=== PATIENT | female | born 1970 | race Caucasian/White ===

== ENCOUNTER 2019-07-21 11:11 | Outpatient (CLI) | payer OTHER, SELFPAY ==
--- NOTE | ~2019-07-21 | XR_ITS ---
XR lumbar spine 2-3V 07/21/2019 11:51 Indication: Low back pain Procedure: 3 views lumbar spine Comparison: 08/10/2016 Findings: There is disc narrowing at L2-3, L3-4 and to a lesser degree L1-2. There is levoscoliosis. Vertebral body heights are maintained. There is grade 1 spinal listhesis at L5-S1. Pedicles intact. T here is a healed right 10th rib fracture. Impression: 1: Mild lumbar spondylosis with levoscoliosis. Reviewed, dictated and finalized at location A. TECHNOLOGIST Impression: 1: Mild lumbar spondylosis with levoscoliosis.
--- NOTE | ~2019-07-21 | XR_ITS ---
XR thoracic spine 3V 07/21/2019 11:51 Indication: Back pain Procedure: 3 views thoracic spine Comparison: No prior studies for comparison. Findings: Vertebral body heights are maintained. There is mild dextroscoliosis of the lower thoracic spine. Pedicles intact. No paraspinal soft tissue abnormalities. The surrounding osseous structures w ithin normal limits. No acute fracture or traumatic malalignment. Impression: 1: Mild dextroscoliosis of the lower thoracic spine. Reviewed, dictated and finalized at location A. BLASTER SUPERVISOR Impression: 1: Mild dextroscoliosis of the lower thoracic spine.
[2019-07-21 12:56] LABS: Hemoglobin 13.6 g/dL (12.0-15.0); Mean Corpuscular HGB Conc 31.6 g/dl (32-36); Mean Corpuscular Hemoglobin 29.2 pg (26-34); Mean Corpuscular Volume 92.5 fl (80-100); Mean Platelet Volume 10.3 fl (7.4-10.4); Platelet Count Result 358 k/mm3 (150-375); Red Blood Count 4.65 M/mm3 (4.2-5.4); Red Cell Distribution Width 13.3 % (11.5-14.5); White Blood Count 10.1 K/mm3 (4.5-10.0)
== END 2019-07-21 11:12 | disposition home or self-care (01) ==
LOC: ANHIMG 11:18
PROVIDERS: PCP Emergency Medicine; Visit Provider Emergency Medicine
DX: M41.84 Other forms of scoliosis, thoracic region (principal); D72.829 Elevated white blood cell count, unspecified; M47.816 Spondylosis without myelopathy or radiculopathy, lumbar region
CPT/HCPCS: 36415; 72072; 72100; 85027

== ENCOUNTER 2019-08-23 05:31 | Emergency (ER) | payer OTHER, SELFPAY ==
--- NOTE | ~2019-08-23 | XR_ITS ---
EXAMINATION: XR chest 2V DATE: 08/23/2019 06:34 INDICATION: Cough TECHNIQUE: PA and lateral views of the chest were obtained. COMPARISON: Chest radiograph dated 10/09/2018 FINDINGS: Mild biapical pleural-parenchymal scarring. Couple small calcified pulmonary nodules consistent with old granulomatous disease. No new airspace opacities, pulmonary edema, pleural effusion or pneumothor ax. The cardiomediastinal silhouette is normal. Mild thoracolumbar dextrocurvature with mild thoracic and moderate upper lumbar spondylosis. IMPRESSION: 1. No acute cardiopulmonary disease. Reviewed, dictated and finalized at location A.
[2019-08-23 05:46] VITALS: BP 128/74; PULSE 73; RESP 15; TEMP 36.4; O2SAT 100
--- NOTE | 2019-08-23 06:51 | ED.URI ---
HPI - URI/Sore Throat General Chief Complaint: Upper Respiratory Infection Stated Complaint: COUGH/SOB Time Seen by Provider: 08/23/19 05:59 History of Present Illness HPI Narrative: Patient is a 49-year-old female who presents to the ER with reports of productive cough of green phlegm. No fevers or chills or body aches. Has history of emphysema and lung disease from smoking. Patient continues to smoke. Has a son who currently is ill with respiratory issue as well. +PND and sore throat. No recent travel or other known sick contacts. No modifying factors for her cough. No shortness of breath. Symptoms began 08/17/2019. Related Data Allergies Allergy/AdvReac Type Severity Reaction Status Date / Time amoxicillin Allergy Intermediate abd. pain Verified 06/25/18 17:45 Review of Systems Review of Systems: All systems reviewed & are unremarkable except as noted in HPI and below Constitutional: Constitutional: Denies chills and Denies fever(s) ENT: Denies hoarseness, Reports post nasal drip and Reports sore throat Respiratory: Respiratory: Reports change in phlegm color, Denies chest congestion, Reports cough and Denies dyspnea PMFSH Past Medical History Medical History (Updated 08/23/19 @ 07:13 by Corey Rodriguez MD) Anxiety Depression Surgical History Surgical History (Updated 08/23/19 @ 06:55 by Corey Rodriguez MD) No pertinent past surgical history Social History Social History (Updated 08/23/19 @ 06:55 by Corey Rodriguez MD) Smoking status: Current every day smoker Tobacco type: cigarettes Gender identity (if verbalized by the patient): Female Exam Narrative: Exam Narrative: GENERAL: Well-appearing, well-nourished, and in no acute distress. HEAD: Normocephalic, atraumatic. ENT: Mucous membranes moist. Normal posterior oropharynx. CHEST: Clear to auscultation. No respiratory distress. HEART: Regular rate and rhythm. Normal peripheral pulses. NEURO: Alert and oriented x3. PSYCH: Normal mood and affect. Course Course Emergency Course: Recommend OTC supportive care. No wheezing so no steroids/albuterol. Vital Signs Vital signs: Vital Signs Temperature 97.6 F 08/23/19 05:46 Pulse Rate 73 08/23/19 05:46 Respiratory Rate 15 08/23/19 05:46 Blood Pressure 128/74 08/23/19 05:46 Pulse Oximetry 100 08/23/19 05:46 Temperature 97.6 F 08/23/19 05:46 Pulse Rate 73 08/23/19 05:46 Respiratory Rate 15 08/23/19 05:46 Blood Pressure 128/74 08/23/19 05:46 Pulse Oximetry 100 08/23/19 05:46 MDM - URI/Sore Throat Lab Data Labs: Influenza A Screen Negative Reference Range: Negative Influenza B Screen Negative Reference Range: Negative Imaging Data Radiologist's impression: ITS Impressions Chest X-Ray 08/23/19 06:46 IMPRESSION: 1. No acute cardiopulmonary disease. Discharge Plan Discharge Clinical Impression: Viral infection Patient Disposition: Home, Self-Care Condition: Stable Instructions: Viral Syndrome (ED) Additional Instructions: You have a viral syndrome that is causing you to have a productive cough. You had a normal chest x-ray and normal vital signs while in the ER. Is recommended that you purchase [id number] Mucinex DM to help with cough suppression and evacuation of phlegm. Return to the ER if you develop shortness of breath, you have fevers over 100.4 ?F, you have additional concerns. Prescriptions: New dextromethorphan-guaifenesin [Mucinex DM] 60-1,200 mg tablet extended release 12 hr 1 tablet PO Q12H Qty: 20 RF: 0 Follow-up/Referrals: Mannie Mcclain MD [Primary Care Provider] -
[2019-08-23 07:10] VITALS: BP 121/87; PULSE 98; RESP 17; O2SAT 97
== END 2019-08-23 07:10 | disposition home or self-care (01) ==
PROVIDERS: Emergency Provider Emergency Medicine; PCP Emergency Medicine
DX: B34.9 Viral infection, unspecified (principal); J43.9 Emphysema, unspecified; F17.210 Nicotine dependence, cigarettes, uncomplicated
CPT/HCPCS: 71046; 87804; 99283

== ENCOUNTER 2020-01-22 15:07 | Outpatient (CLI) | payer OTHER, SELFPAY ==
--- NOTE | ~2020-01-22 | MM_ITS ---
EXAMINATION: MM screening [facility] BI w yesi HISTORY: Screening mammogram TECHNIQUE: Craniocaudal and mediolateral oblique 3-D tomosynthesis images were obtained and synthetic 2-D images were generated. CAD analysis was submitted and interpreted. COMPARISON: 08/16/2018, 08/12/2016 BREAST PARENCHYMAL COMPOSITION: The breasts are heterogeneously dense, which may obscure small masses . FINDINGS: There is no evidence of suspicious mass, calcification, or architectural distortion to sugg est malignancy in either breast. There has been no suspicious interval change. IMPRESSION: 1. No mammographic evidence of malignancy. 2. Recommend routine screening mammography in one year. BI-RADS Category 1: Negative Reviewed, dictated and finalized at location A.
== END 2020-01-22 15:08 | disposition home or self-care (01) ==
LOC: ANHIMG 15:09
PROVIDERS: PCP Emergency Medicine; Visit Provider Nurse Practitioner Family
DX: Z12.31 Encounter for screening mammogram for malignant neoplasm of breast (principal)
CPT/HCPCS: 77063; 77067

== ENCOUNTER 2020-06-10 15:00 | Outpatient (RCR) | payer OTHER, SELFPAY ==
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
== END 2020-06-11 14:01 | disposition home or self-care (01) ==
LOC: ANHPT 15:00
PROVIDERS: PCP Nurse Practitioner Family
DX: M54.12 Radiculopathy, cervical region (principal)
CPT/HCPCS: 97014; 97110; 97112; 97140; 97162; G0283

== ENCOUNTER 2020-06-16 10:22 | Outpatient (CLI) | payer OTHER, SELFPAY ==
[2020-06-16 11:03] LABS: Hemoglobin A1C 5.1 % (<5.7)
[2020-06-16 11:08] LABS: Alanine Aminotransferase 20 U/L (4-35); Albumin Level 4.1 g/dL (3.5-5.1); Alkaline Phosphatase 72 U/L (38-126); Anion Gap 5 mmol/L (8-16); Aspartate Amino Transferase 28 U/L (14-36); Bilirubin,Total 0.8 mg/dL (0.2-1.3); Blood Urea Nitrogen 17 mg/dL (7-17); Calcium 8.5 mg/dL (8.4-10.2); Carbon Dioxide 24 mmol/L (22-30); Chloride 103 mmol/L (98-107); Cholesterol 183 mg/dL (0-200); Estimated Glomerular Filt Rate > 60; Glucose 96 mg/dL (65-105); HDL Direct 51 mg/dL; Potassium 4.2 mmol/L (3.4-5.0); Sodium 132 mmol/L (137-145); Triglycerides 191 mg/dL (<150)
[2020-06-16 11:19] LABS: LDL Cholesterol Direct 104 mg/dL
== END 2020-06-16 10:23 | disposition home or self-care (01) ==
PROVIDERS: PCP Nurse Practitioner Family; Visit Provider Nurse Practitioner Family
DX: E78.5 Hyperlipidemia, unspecified (principal); R73.9 Hyperglycemia, unspecified
CPT/HCPCS: 36415; 80053; 80061; 83036

== ENCOUNTER → 2020-08-08 10:55 | Outpatient (CLI) | payer OTHER, SELFPAY ==
[2020-08-09 01:17] LABS: SARS-CoV-2 RNA PCR Negative
== END ==
PROVIDERS: PCP Nurse Practitioner Family
DX: Z01.812 Encounter for preprocedural laboratory examination (principal); Z20.822 Contact with and (suspected) exposure to COVID-19
CPT/HCPCS: C9803; U0003; U0005

== ENCOUNTER 2021-03-21 09:49 | Emergency (ER) | payer OTHER, SELFPAY ==
[2021-03-21 10:00] VITALS: BP 140/89; PULSE 79; RESP 16; TEMP 36.8; O2SAT 99
--- NOTE | 2021-03-21 10:25 | ED.URI ---
HPI - URI/Sore Throat General Chief Complaint: Upper Respiratory Infection Stated Complaint: sinus infection Time Seen by Provider: 03/21/21 10:26 Source: patient and RN notes reviewed Mode of arrival: ambulatory Limitations: no limitations History of Present Illness HPI Narrative: 51-year-old female presents concern for cough, chest congestion, headache, sinus pressure. Reports symptoms started 6 days ago. Reports she had a negative Covid test. Reports she has been using albuterol that she had from past bronchitis. Reports she has been using Flonase. Reports the Flonase has helped her sinus drainage strep, however she now has worsening persistent cough. She denies shortness of breath. MD elicited complaint: nasal congestion Related Data Home Medications Medication Instructions Recorded Confirmed Flonase 03/21/21 albuterol 03/21/21 citalopram mg 03/21/21 Allergies Allergy/AdvReac Type Severity Reaction Status Date / Time amoxicillin Allergy Intermediate abd. pain Verified 06/25/18 17:45 Review of Systems Review of Systems: CONSTITUTIONAL: Denies malaise, chills, sweats, or fever. EYES: Denies visual changes, redness, or discharge. ENT: Reports rhinorrhea, congestion, sinus pain, ear fullness. Denies otalgia and sore throat. CARDIOVASCULAR: Denies chest pain, palpitations, or edema. RESPIRATORY: Reports persistent cough. Denies dyspnea. GASTROINTESTINAL: Denies abdominal pain, nausea, vomiting, diarrhea SKIN: Denies rash or itching. MUSCULOSKELETAL: Denies myalgia. NEUROLOGIC: Reports headache. All systems reviewed & are unremarkable except as noted in HPI and below PMFSH Past Medical History Medical History (Updated 03/21/21 @ 10:36 by Padmini Carr NP) Anxiety Depression Surgical History Surgical History (Updated 08/23/19 @ 06:55 by Corey Rodriguez MD) No pertinent past surgical history Social History Social History (Updated 08/23/19 @ 06:55 by Corey Rodriguez MD) Smoking status: Current every day smoker Tobacco type: cigarettes Gender identity (if verbalized by the patient): Female Comments At time of signature, agree with nursing past medical, surgical, social and family history. There is no relevant family history pertinent to the presenting complaint Exam Narrative: GENERAL: Well-appearing, well-nourished, and in no acute distress. HEAD: Normocephalic EYES: PERRLA, conjunctivae clear ENT: Nares clear, clear discharge. Mucous membranes moist. TM pearly kraft with dull light reflex bilaterally; no tragal tenderness. Oropharynx not erythematous without lesions. Tonsils not enlarged and without exudate, no drooling, no hoarseness, no trismus, uvula midline. NECK: Supple. No lymphadenopathy CHEST: Clear to auscultation, breath sounds equal. No wheezing, rhonchi, rales, or stridor. No respiratory distress, speaks in full sentences. Cough HEART: Regular rate and rhythm. No murmur heard. SKIN: Warm, dry, no rash. NEURO: Alert and oriented x3. PSYCH: Normal mood and affect Course Course Emergency Course: Patient is aware of diagnosis, understands and agrees to treatment plan. Anticipatory guidance given. Patient agrees to follow-up as directed and is aware of reasons to seek care at the emergency department. Portions of this record may have been created with voice recognition software Vital Signs Vital signs: Vital Signs Temperature 98.2 F 03/21/21 10:00 Pulse Rate 79 03/21/21 10:00 Respiratory Rate 16 03/21/21 10:00 Blood Pressure 140/89 03/21/21 10:00 Pulse Oximetry 99 03/21/21 10:00 Temperature 98.2 F 03/21/21 10:00 Pulse Rate 79 03/21/21 10:00 Respiratory Rate 16 03/21/21 10:00 Blood Pressure 140/89 03/21/21 10:00 Pulse Oximetry 99 03/21/21 10:00 Reviewed. MDM - URI/Sore Throat MDM Narrative Medical decision making narrative: Differential diagnosis considered: Stein virus, strep pharyngitis, allergic rhinitis, upper respirato
== END 2021-03-21 10:39 | disposition home or self-care (01) ==
PROVIDERS: Emergency Provider Nurse Practitioner; PCP Nurse Practitioner Family
DX: J32.9 Chronic sinusitis, unspecified (principal); J40 Bronchitis, not specified as acute or chronic; F17.210 Nicotine dependence, cigarettes, uncomplicated
CPT/HCPCS: 99213; G0463

== ENCOUNTER 2021-04-16 18:22 | Emergency (ER) | payer OTHER, SELFPAY ==
--- NOTE | ~2021-04-16 | XR_ITS ---
EXAMINATION: XR hand RT min 3V DATE: 04/16/2021 18:40 INDICATION: Right hand swelling TECHNIQUE: Posteroanterior, oblique and lateral views of the right hand were obtained. COMPARISON: None. FINDINGS: Alignment is normal. No fracture. Mild osteoarthritis at the first interphalangeal joint. No erosions to suggest an inflammatory arthritis. Soft tissues are unremarkable. IMPRESSION: 1. 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 No acute osseous abnormality. Reviewed, dictated and finalized at location A. ER HOOKER IMPRESSION: 1. 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 No acute osseo us abnormality.
--- NOTE | 2021-04-16 18:29 | ED.UPPEXIN ---
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 Has a history of anxiety, depression. Denies any other past medical or surgical history Related Data Home Medications Medication Instructions Recorded Confirmed citalopram mg 03/21/21 Allergies Allergy/AdvReac Type Severity Reaction Status Date / Time amoxicillin Allergy Intermediate abd. pain Verified 06/25/18 17:45 Review of Systems Constitutional: Constitutional: Reports no additional constitutional complaints, Denies chills and Denies fever(s) Eyes: Eyes: Reports no additional eye complaints ENT: Reports system reviewed and no additional complaints, except as documented Cardiovascular: Cardiovascular: Reports no additional cardiovascular complaints Respiratory: Respiratory: Reports no additional respiratory complaints Musculoskeletal: Musculoskeletal: Reports as per HPI Comments: Base of thumb right hand minor swelling dorsal Integumentary/Breasts: Skin/Breast: Reports system reviewed and no additional complaints, except as docu Neurologic: Reports system reviewed and no additional complaints, except as documented Psychiatric: Psychiatric: Reports no additional psychiatric complaints Allergic/Immunologic: Allergic/Immunologic: Reports no additional allergic/immunologic complaints PMFSH Past Medical History Medical History (Updated 04/16/21 @ 18:59 by Padmini Arango) Anxiety Depression Surgical History Surgical History No pertinent past surgical history Social History Social History Smoking status: Current every day smoker Tobacco type: cigarettes Gender identity (if verbalized by the patient): Female Comments At the time of my signature, I reviewed and agree with the nursing past medical, surgical, social, and family history. There is no relevant family history pertinent to the patient complaint. Exam Const: General: healthy appearing, no acute distress and alert Nutritional Appearance: well nourished Orientation/consciousness: patient oriented x3 Limitations: no limitations HENMT: Head: normal to inspection Eyes: Pupils: Equal, round and reactive pupils present Neck: Neck: normal visual inspection, no lymphadenopathy and no meningeal signs Chest: Chest palpation & inspection: normal inspection of the chest Resp: Effort & Inspection: normal respiratory effort and no use of accessory muscles Auscultation: clear to auscultation bilaterally, no crackles, no rales, no rhonchi and no wheezes Cardio: Rate: regular rate Rhythm: regular rhythm : General: Yes no CVA tenderness Back/Spine/Pelvis: Back: no CVA tenderness Skin: General skin exam: normal color Rashes: no rashes Wounds: no wounds Neuro: General: patient oriented x3, moves all extremities, no meningeal signs and no focal motor deficits Speech: normal speech Gait exam (Neuro): Normal gait present Extrem: General: normal to inspection and no pedal edema Right upper extremity: Extremity exam: right hand normal capillary refill, neuromotor exam normal, neurosensory exam normal, tenderness of the thumb at the MCP joint, normal ROM of fingers and swelling of the dorsal hand over the 1st metacarpal and over the 2nd metacarpal; no unusual warmth Left upper extremity: normal to inspection Psych: Appearance: grossly normal and well kempt Mental Status: mental status grossly normal Affect: normal affect Attitude: cooperative Thought con
[2021-04-16 18:31] VITALS: BP 143/87; PULSE 78; RESP 16; TEMP 36.4; O2SAT 99
== END 2021-04-16 19:08 | disposition home or self-care (01) ==
PROVIDERS: Emergency Provider Nurse Practitioner; PCP Nurse Practitioner Family
DX: M19.041 Primary osteoarthritis, right hand (principal); F41.9 Anxiety disorder, unspecified; F32.9 Major depressive disorder, single episode, unspecified
CPT/HCPCS: 73130; 99213; G0463

== ENCOUNTER 2021-11-03 12:37 | Outpatient (CLI) | payer OTHER, SELFPAY ==
[2021-11-03 13:06] LABS: Basophils Percent Auto 0.2 % (0.2-1.2); Eosinophils Percent Auto 0.5 % (0-4.4); Hematocrit 39.2 % (37.0-47.0); Hemoglobin 12.6 g/dL (12.0-15.0); Immature Granulocyte Absolute 0.04 K/mm3 (0.00-0.031); Immature Granulocyte Percent A 0.5 % (0-0.5); Lymphocytes Absolute Auto 1.78 K/mm3 (0.9-3.2); Lymphocytes Percent Auto 20.5 % (18.3-44.2); Mean Corpuscular HGB Conc 32.1 g/dl (32-36); Mean Corpuscular Hemoglobin 29.5 pg (26-34); Mean Corpuscular Volume 91.8 fl (80-100); Mean Platelet Volume 10.1 fl (7.4-10.4); Monocytes Absolute Auto 0.4 K/mm3 (0.1-0.6); Neutrophils Absolute Auto 6.4 K/mm3 (1.3-6.7); Neutrophils Percent Auto 73.3 % (45.5-73.1); Platelet Count Result 288 k/mm3 (150-375); Red Blood Count 4.27 M/mm3 (4.2-5.4); Red Cell Distribution Width 13.8 % (11.5-14.5); White Blood Count 8.7 K/mm3 (4.5-10.0)
[2021-11-03 13:08] LABS: Rheumatoid Factor < 8.6 IU/ML (<12)
[2021-11-03 13:16] LABS: Alanine Aminotransferase 17 U/L (6-35); Alkaline Phosphatase 80 U/L (38-126); Anion Gap 6 mmol/L (8-16); Aspartate Amino Transferase 24 U/L (14-36); Bilirubin,Total 0.8 mg/dL (0.2-1.3); Blood Urea Nitrogen 9 mg/dL (7-17); Calcium 8.6 mg/dL (8.4-10.2); Carbon Dioxide 25 mmol/L (22-30); Chloride 103 mmol/L (98-107); Cholesterol 158 mg/dL (0-200); Estimated Glomerular Filt Rate > 60; Glucose 114 mg/dL (65-110); HDL Direct 55 mg/dL; LDL Cholesterol Direct 70 mg/dL; Potassium 3.8 mmol/L (3.4-5.0); Sodium 134 mmol/L (137-145); Triglycerides 72 mg/dL (<150)
[2021-11-03 13:35] LABS: Thyroid Stimulating Hormone 0.656 uIU/mL (0.465-4.680)
== END 2021-11-03 12:38 | disposition home or self-care (01) ==
LOC: ANHLAB 12:40
PROVIDERS: PCP Nurse Practitioner Family; Visit Provider Physician Assistant
DX: D17.9 Benign lipomatous neoplasm, unspecified (principal); M25.50 Pain in unspecified joint; Z76.89 Persons encountering health services in other specified circumstances
CPT/HCPCS: 36415; 80053; 80061; 84443; 85025; 86038; 86430

== ENCOUNTER → 2021-12-23 14:48 | Outpatient (CLI) | payer OTHER, SELFPAY ==
--- NOTE | ~2021-12-23 | XR_ITS ---
XR cervical spine 4-5V DATE: 12/23/2021 15:07 INDICATION: Right neck pain for one week TECHNIQUE: AP, open-mouth, lateral and swimmer views COMPARISON: 05/16/2017 CT cervical spine FINDINGS: There is reversal cervical curvature. C1 and C2 are normally aligned and the odontoid process is intact. 3.4 mm anterolisthesis at C4-5, compared to approximately 1.5 mm on 05/16/2017. No fracture or dislocation or locked facet or prevertebral soft tissue swelling. There is severe degenerative disc disease and mild retrolisthesis at C5-6. Moderately severe degenerative disc disease and retrolisthesis at C6-7. There is uncovertebral joint spurring, most notably on the right at C4-5 and C5-6 and particularly on the left at C5-6 and C6-7. IMPRESSION: Reversal cervical curvature 3.4 mm anterolisthesis at C4-5, increased from 1.5 mm on 05/16/2017 Severe degenerative disease, retrolisthesis at C5-6 Moderately severe degenerative disease, retrolisthesis at C6-7 Reviewed, dictated and finalized at location A.
== END ==
PROVIDERS: PCP Physician Assistant; Visit Provider Physician Assistant
DX: M47.22 Other spondylosis with radiculopathy, cervical region (principal)
CPT/HCPCS: 72050

== ENCOUNTER 2022-06-03 08:36 | Emergency (ER) | payer OTHER, SELFPAY ==
[2022-06-03 08:56] VITALS: BP 144/80; PULSE 79; RESP 16; TEMP 36.4; O2SAT 99
--- NOTE | 2022-06-03 09:24 | ED.EYEPROB ---
HPI - Eye Problem General Chief complaint: Eye Problems Stated complaint: right eye injury Time Seen by Provider: 06/03/22 09:25 Source: patient Mode of arrival: ambulatory Limitations: no limitations History of Present Illness HPI Narrative: 52 y/o female presented for c/o bruising to right eye after injury 5 days ago. States while at work a bungee cord struck her in the face resulting in bruising and pain. Now also with right neck pain and headache. States the injury has caused stress and ultimately results in headaches. She is taking Tylenol without relief. Has applied ice to the eye. Denies vision changes, photophobia, dizziness, nausea, vomiting, numbness tingling or weakness of the upper extremities. MD chief complaint: eye pain Related Data Home Medications Medication Instructions Recorded Confirmed citalopram 20 mg tablet 20 mg PO DAILY 03/21/21 06/03/22 buspirone 5 mg tablet 5 mg PO DAILY 06/03/22 06/03/22 Allergies Allergy/AdvReac Type Severity Reaction Status Date / Time amoxicillin Allergy Intermediate abd. pain Verified 06/03/22 09:00 Review of Systems Review of Systems: CONSTITUTIONAL: Denies body aches, fever, chills EYES:Endorses swelling, bruising right eye; denies FB sensation, photophobia, visual changes ENT: Denies rhinorrhea, congestion, sore throat, or otalgia. CARDIOVASCULAR: Denies chest pain, palpitations RESPIRATORY: Denies cough or dyspnea. GASTROINTESTINAL: Denies abdominal pain, nausea, vomiting, or diarrhea. SKIN: Denies rash, itching, or wounds. MUSCULOSKELETAL:reports neck pain NEUROLOGIC: Denies numbness, tingling, or weakness. All systems reviewed & are unremarkable except as noted in HPI and below PMFSH Past Medical History Medical History Anxiety Depression Surgical History Surgical History No pertinent past surgical history Social History Social History Smoking status: Current every day smoker Tobacco type: cigarettes Gender identity (if verbalized by the patient): Female Comments At time of signature, I have reviewed and agree with nursing past medical, surgical, social and family history unless otherwise noted. Please see nursing chart for further information. There is no relevant family history pertinent to the presenting complaint Exam Narrative: GENERAL: Well-appearing HEAD: Normocephalic, atraumatic. EYES: Mild right lower orbital bruising, yellow in color, no open area. no conjunctival injection or eye lid swelling. PERRLA, EOMI. ENT: Mucous membranes pink and moist. No rhinorrhea. CHEST: Clear to auscultation. HEART: Regular rate and rhythm. SKIN: Warm, dry, no rash. Normal skin turgor. NEURO: No focal deficits. Alert and oriented x3. Full ROM to BUEs. MUSC: para spinal muscle tenderness at C6-7 area R>L PSYCH: Normal affect. Course Course Emergency Course: Patient is aware of diagnosis, understands and agrees to treatment plan. Anticipatory guidance given. Patient agrees to follow-up as directed and is aware of reasons to seek care at the emergency department. Portions of this record may have been created with voice recognition software Level of Care: Express Care Visit Vital Signs Vital signs: Vital Signs Temperature 97.6 F 06/03/22 08:56 Pulse Rate 79 06/03/22 08:56 Respiratory Rate 16 06/03/22 08:56 Blood Pressure 144/80 H 06/03/22 08:56 Pulse Oximetry 99 06/03/22 08:56 Oxygen Delivery Room Air 06/03/22 08:56 Temperature 97.6 F 06/03/22 08:56 Pulse Rate 79 06/03/22 08:56 Respiratory Rate 16 06/03/22 08:56 Blood Pressure 144/80 H 06/03/22 08:56 Pulse Oximetry 99 06/03/22 08:56 Oxygen Delivery Room Air 06/03/22 08:56 MDM - Eye Problem MDM Narrative Medical decision making narrative: Advised supportive m
== END 2022-06-03 09:55 | disposition home or self-care (01) ==
PROVIDERS: Emergency Provider Nurse Practitioner Family
DX: S05.11XA Contusion of eyeball and orbital tissues, right eye, initial encounter (principal); M54.2 Cervicalgia; R51.9 Headache, unspecified; W20.8XXA Other cause of strike by thrown, projected or falling object, initial encounter; F41.8 Other specified anxiety disorders; F17.210 Nicotine dependence, cigarettes, uncomplicated
CPT/HCPCS: 99213; G0463

== ENCOUNTER 2022-07-01 16:32 | Emergency (ER) | payer OTHER, SELFPAY ==
--- NOTE | ~2022-07-01 | XR_ITS ---
EXAMINATION: XR hip LT 2V w AP pelvis DATE: 07/01/2022 20:53 INDICATION: Left hip pain running down the femur. TECHNIQUE: An anteroposterior view of the pelvis and 2 views of left hip were obtained. COMPARISON: None. FINDINGS: Bone alignment is normal. No fracture. Joint spaces are well maintained. There is an intrau terine device in expected position. An electronic device overlies right pelvis with electrode overlyi ng the sacrum. IMPRESSION: 1. Normal hips. Reviewed, dictated and finalized at location A. OGRAPH RETOUCHER IMPRESSION: 1. Normal hips.
--- NOTE | ~2022-07-01 | US_ITS ---
EXAMINATION: US venous doppler [facility] DATE: 07/01/2022 21:48 INDICATION: Left lower limb pain. TECHNIQUE: Grayscale ultrasound images without and with compression and Doppler ultrasound images of the left lower extremity veins were obtained. COMPARISON: None. FINDINGS: The visualized portions of left common femoral vein, profunda (deep) femoral vein, femoral vein, popl iteal vein, peroneal veins, posterior tibial veins, and greater saphenous vein outflow are patent. IMPRESSION: 1. No deep venous thrombosis. Reviewed, dictated and finalized at location A. NOSTIC TECH
[2022-07-01 16:44] VITALS: BP 131/82; PULSE 90; RESP 18; TEMP 36.4; O2SAT 98
[2022-07-01] MEDS: diazePAM (*CRX) 5 MG TABLET PO (20:50)
[2022-07-01] MEDS: KETOROLAC 30 MG/ML VIAL (*BKC) IM (20:51)
[2022-07-01 21:38] VITALS: BP 110/62; PULSE 80; RESP 18; O2SAT 98
--- NOTE | 2022-07-01 22:39 | ED.LOWEXIN ---
HPI - Extremity Injury (Lower) General Chief Complaint: Extremity Injury, Lower Stated Complaint: L. leg pain Time Seen by Provider: 07/01/22 20:31 History of Present Illness HPI Narrative: Patient presents with several days of pain to radiate from her left buttock down to her knee, she does state that her work is quite strenuous, she took some Tylenol at home was hoping that would help but she is still having the symptoms. Worse when she flexes her hips. Related Data Home Medications Medication Instructions Recorded Confirmed citalopram 20 mg tablet 20 mg PO DAILY 03/21/21 06/03/22 buspirone 5 mg tablet 5 mg PO DAILY 06/03/22 06/03/22 Allergies Allergy/AdvReac Type Severity Reaction Status Date / Time amoxicillin Allergy Intermediate abd. pain Verified 06/03/22 09:00 Review of Systems Review of Systems: CONST: No fever. HEENT: No sore throat C/V: No chest pain RESP: No cough GI: No nausea or vomiting : No dysuria. M/S: Left hip pain. SKIN: No rash. NEURO: No numbness or tingling PSYCH: [No depression] [facility] Past Medical History Medical History Anxiety Depression Surgical History Surgical History No pertinent past surgical history Social History Social History Smoking status: Current every day smoker Tobacco type: cigarettes Gender identity (if verbalized by the patient): Female Exam Narrative: EXAMINATION OF ORGAN SYSTEMS/BODY AREAS: Constitutional: Vital signs per nursing GENERAL: Appears slightly uncomfortable in bed HEAD: Normal with no signs of head trauma. EYES: EOMI, conjunctiva normal ENT: Hearing grossly intact LUNGS: Nonlabored breathing. HEART: [Regular rate and rhythm] ABD: [Soft], [nontender to palpation] EXT: Normal range of motion, with re-elicitation of pain with flexion of hip/extension of knee but not severe SKIN: [No rashes or lesions.] NEURO: [Alert and oriented x 3. No gross focal sensory or strength deficits.] PSYCH: Normal affect Course Vital Signs Vital signs: Vital Signs Temperature 97.6 F 07/01/22 16:44 Pulse Rate 90 07/01/22 16:44 Respiratory Rate 18 07/01/22 16:44 Blood Pressure 131/82 07/01/22 16:44 Pulse Oximetry 98 07/01/22 16:44 Temperature 97.6 F 07/01/22 16:44 Pulse Rate 83 07/01/22 23:00 Respiratory Rate 18 07/01/22 23:00 Blood Pressure 97/66 L 07/01/22 23:00 Pulse Oximetry 95 07/01/22 23:00 MDM - Extremity Injury (Lower) MDM Narrative Medical decision making narrative: 52-year-old female presenting with left hip pain radiating down to her knee, vital signs stable, on exam she has full range of motion though she does have some elicitation of pain with flexion of the hip and extension, I have very low concern for DVT without any swelling however she does have pain to the back of her knee, and atraumatic, I suspect more likely a pinched nerve or tendinitis. Doubt septic arthritis without fever or fracture without trauma. Hip x-ray is negative, DVT ultrasound is negative. Patient is given Valium for muscle relaxant and Toradol shot, and on reevaluation, is feeling much better. Safe for discharge at this time with follow-up to primary care doctor and return precautions. Discharge Plan Discharge Clinical Impression: Leg pain, left Patient Disposition: Home, Self-Care Condition: Stable Instructions: Antibiotic Form, Musculoskeletal Pain (ED) Additional Instructions: Please follow up with your doctor in the next 2 days; you can always return to the ER if your pain worsens, if there is any swelling or new numbness/tingling or weakness, you should come back to the ER. Prescriptions: New methocarbamol 750 mg tablet 750 mg PO TID Qty: 30 0RF No Action buspirone 5 mg tablet 5 mg PO DAILY cyclobenzaprine 10 mg tablet 10 mg PO
[2022-07-01 23:00] VITALS: BP 97/66; PULSE 83; RESP 18; O2SAT 95
== END 2022-07-01 23:01 | disposition home or self-care (01) ==
PROVIDERS: Emergency Provider Emergency Medicine
DX: M79.652 Pain in left thigh (principal); F41.9 Anxiety disorder, unspecified; F32.A Depression, unspecified; F17.210 Nicotine dependence, cigarettes, uncomplicated
CPT/HCPCS: 73502; 93971; 96372; 99284; A9270; J1885

== ENCOUNTER 2022-07-05 11:32 | Emergency (ER) | payer OTHER, SELFPAY ==
[2022-07-05 11:39] VITALS: BP 137/91; PULSE 94; RESP 16; TEMP 36.4; O2SAT 99
--- NOTE | 2022-07-05 11:47 | ED.GENADULT ---
HPI - General Adult General Chief complaint: Extremity Problem,Nontraumatic Stated complaint: Left Leg Pain Time Seen by Provider: 07/05/22 12:07 Source: patient, RN notes reviewed and old records reviewed Mode of arrival: ambulatory Limitations: no limitations History of Present Illness HPI narrative: 52-year-old female presents to the [facility] with complaints of left leg pain. Was seen in the ER per medical record on the 01 of July. X-ray done of the hips and ultrasound done full negative Patient states that she also did a telehealth visit and was given naproxen, states that is not helping and she needs something stronger. Pain from the left buttock down posterior and lateral left leg to the knee. Denies any trauma. Related Data Home Medications Medication Instructions Recorded Confirmed citalopram 20 mg tablet 20 mg PO DAILY 03/21/21 07/05/22 buspirone 5 mg tablet 5 mg PO DAILY 06/03/22 07/05/22 Allergies Allergy/AdvReac Type Severity Reaction Status Date / Time amoxicillin Allergy Intermediate abd. pain Verified 07/05/22 12:15 Review of Systems Review of Systems: All systems reviewed & are unremarkable except as noted in HPI and below Constitutional: Constitutional: Reports no additional constitutional complaints Eyes: Eyes: Reports no additional eye complaints ENT: Reports system reviewed and no additional complaints, except as documented Cardiovascular: Cardiovascular: Reports no additional cardiovascular complaints, Denies chest pain and Denies dyspnea Respiratory: Respiratory: Reports no additional respiratory complaints, Denies chest congestion, Denies cough and Denies dyspnea Gastrointestinal: Gastrointestinal: Reports no additional gastrointestinal complaints, Denies abdominal pain, Denies nausea and Denies vomiting Musculoskeletal: Musculoskeletal: Reports as per HPI Integumentary/Breasts: Skin/Breast: Reports system reviewed and no additional complaints, except as docu Neurologic: Reports system reviewed and no additional complaints, except as documented Psychiatric: Psychiatric: Reports no additional psychiatric complaints Allergic/Immunologic: Allergic/Immunologic: Reports no additional allergic/immunologic complaints PMFSH Past Medical History Medical History Anxiety Depression Surgical History Surgical History No pertinent past surgical history Social History Social History Smoking status: Current every day smoker Tobacco type: cigarettes Gender identity (if verbalized by the patient): Female Comments At the time of my signature, I reviewed and agree with the nursing past medical, surgical, social, and family history. There is no relevant family history pertinent to the patient complaint. Exam Const: General: cooperative, no acute distress, well developed, alert, anxious, ill appearing chronically, tired appearing, uncomfortable and well nourished Nutritional Appearance: well nourished Orientation/consciousness: patient oriented x3 Limitations: no limitations HENMT: Head: normal to inspection Ears: hearing grossly normal bilaterally and external ears normal Face/Nose/Sinus: Normal external nose present, Normal nares present, Normal nasal mucous membranes and turbinates present and normal facial exam Face and sinus: normal facial exam Mouth: Yes Normal oral and palatal mucosa present, Yes lip normal and Yes moist mucous membranes Throat: posterior oropharynx normal and uvula midline Eyes: General: appearance normal, both eyes and all related structures Alignment and Position: alignment normal Periorbital: periorbital findings normal Conjunctivae: conjunctivae normal Pupils: Equal, round and reactive pupils present EOM: EOMs intact bilaterally Neck: Neck: normal visual inspection, full ROM, no lymphadenop
== END 2022-07-05 12:28 | disposition home or self-care (01) ==
PROVIDERS: Emergency Provider Nurse Practitioner
DX: M54.32 Sciatica, left side (principal); F41.9 Anxiety disorder, unspecified; F32.A Depression, unspecified; F17.210 Nicotine dependence, cigarettes, uncomplicated
CPT/HCPCS: 99213; G0463

== ENCOUNTER 2022-08-02 21:35 | Emergency (ER) | payer OTHER, SELFPAY ==
[2022-08-02 21:44] VITALS: BP 134/87; PULSE 79; RESP 18; TEMP 36.4; O2SAT 99
[2022-08-03 00:59] VITALS: BP 132/85; PULSE 68; RESP 14; O2SAT 99
[2022-08-03] MEDS: methocarbamoL 750 MG TABLET 1500 MG PO (02:57)
[2022-08-03] MEDS: IBUPROFEN 400 MG TABLET 800 MG PO (02:58)
[2022-08-03] MEDS: ACETAMINOPHEN 500 MG TABLET 1000 MG PO (02:58)
--- NOTE | 2022-08-03 03:09 | ED.GENADULT ---
HPI - General Adult General Chief complaint: Extremity Injury, Lower Stated complaint: left leg pain Time Seen by Provider: 08/03/22 01:36 History of Present Illness HPI narrative: This is a 52-year-old female presenting ED with chief complaint of left leg pain. Patient has been having pain in down the back of her left leg for the last 1 month. She has been seeing our emergency department where she was diagnosed with sciatica. She then follow up with primary care physician who gave her naproxen and told her to follow-up in 4 weeks. Patient says that the pain was worse today and she needed more pain medication. Patient also notes she has some pins and needles sensation down the outside of her leg. She denies any recent trauma. 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 Related Data Home Medications Medication Instructions Recorded Confirmed citalopram 20 mg tablet 20 mg PO DAILY 03/21/21 07/05/22 buspirone 5 mg tablet 5 mg PO DAILY 06/03/22 07/05/22 Allergies Allergy/AdvReac Type Severity Reaction Status Date / Time amoxicillin Allergy Intermediate abd. pain Verified 08/02/22 21:35 [facility] Past Medical History Medical History Anxiety Depression Surgical History Surgical History No pertinent past surgical history Social History Social History Smoking status: Current every day smoker Tobacco type: cigarettes Gender identity (if verbalized by the patient): Female Exam Narrative: APPEARANCE: No apparent distress. Head: atraumatic. EYES: EOMI, NOSE: Atraumatic NECK: Trachea midline RESPIRATORY: No increased rate of breathing CARDIOVASCULAR: RRR, ABDOMINAL: Non-distended MUSCULOSKELETAl: No obvious deformities , strength is intact at the hip knee and ankle. Pulses are +2 and PT and DP distribution. Cap refills less than 2 seconds. No overlying skin changes or masses. NEURO: Alert. Moving 4/4 extremities SKIN:: Warm, dry. Normal color PSYCHIATRIC: Normal affect Course Vital Signs Vital signs: Vital Signs Temperature 97.6 F 08/02/22 21:44 Pulse Rate 79 08/02/22 21:44 Respiratory Rate 18 08/02/22 21:44 Blood Pressure 134/87 08/02/22 21:44 Pulse Oximetry 99 08/02/22 21:44 Oxygen Delivery Room Air 08/02/22 21:44 Temperature 97.6 F 08/02/22 21:44 Pulse Rate 68 08/03/22 00:59 Respiratory Rate 14 08/03/22 00:59 Blood Pressure 132/85 08/03/22 00:59 Pulse Oximetry 99 08/03/22 00:59 Oxygen Delivery Room Air 08/02/22 21:44 Medical Decision Making MDM Narrative Medical decision making narrative: -Presentation:52-year-old female history of sciatica presenting with pain radiating down the back of her leg. -DDX includes but is not limited to: Sciatica, musculoskeletal pain -Co-morbidities complicating care: anxiety, depression -Social determinants of health: patient's pain is interfering with her work at the [employer]. -External Chart Review: Review of records from the urgent care. -Hx from independent Sources: none -Discussion of Management/ consultants: None -Independent interpretation of studies: none Dx tests considered but not ordered: imaging -patient's history is consistent with sciatica, no indication for imaging at this time -Procedures: -Interventions: 1000 mg Tylenol, 800 mg Motrin, 1500 mg Robaxin -Shared decision making / Disposition: patient is having pain that is consistent with sciatica in an S1 distribution. She has no neurologic findings. She will be treated conservatively with Motrin Tylenol Robaxin given primary care follow-up. -RX: Motrin, Tylenol, Robaxin Vital Signs Vital Signs: Vital Signs Temperature 97.6 F 08/02/22 21:44 Pulse Rate 79 08/02/22 21:44 Respiratory Rate 18 08/02/22 21:44 Blood Pressure 134/87
== END 2022-08-03 03:22 | disposition home or self-care (01) ==
PROVIDERS: Emergency Provider Emergency Medicine; PCP Family Medicine
DX: M54.32 Sciatica, left side (principal); F41.9 Anxiety disorder, unspecified; F32.A Depression, unspecified
CPT/HCPCS: 99283; A9270

== ENCOUNTER 2022-10-19 09:00 | Outpatient (RCR) | payer OTHER, SELFPAY ==
--- NOTE | 2022-09-20 09:19 | PTOPEVAL1 ---
Assessment and note entered by Jermain Lam, PT Evaluation Information Assessment Status Evaluation Diagnosis back pain with radiating L LE symptoms down to the knee. Subjective Information Patient reports pain originally so severe had to stop working. Has been on gabapentin for 3 weeks and is really helping. Currently having trouble with sleeping and has not been able to fully return to her job at [employer] or the gym. Reported Pain Level Pain Score 2: Self Report Assessment PT Clinical Summary Cassy is a 52 year old female coming into the clinic with a diagnosis of back pain with radiating pain down the LLE. She has tightness in her L piriformis and ARMAND hamstrings along with weakness in the hips, core and knee flexors. The patient SI was in alignment, but reports it does go out of alignment so we will keep an eyes on it. No change with gentle distraction in radiating symptoms. Physical therapy will work on stretching and strengthening of the core and lower extremity along with modalities and manual as needed for pain. Plan of Care Interventions Electrical Stimulation,Gait Training,Hot Pack/Cold Pack,Manual Therapy,Mechanical Traction,Neuro Re- education,Patient/Caregiver Education,Therapeutic Activities,Therapeutic Exercise,Ultrasound Other Interventions taping, cupping, IASTM PT Services Indicated Yes Treatment Frequency and 1-2x/wk for 4 weeks Duration These treatments will address the objective and functional deficits as defined above. The patient will be advanced safely and appropriately in order for the patient to progress towards his/her prior level of function. Additional exercises will be introduced and as well as a comprehensive home exercise program upon discharge, if needed, ?to ensure carryover of functional gains achieved in the clinic. This treatment plan has been reviewed and agreement upon by the patient.
--- NOTE | 2022-09-28 08:51 | PCPTNOTE ---
Patient called & cancelled scheduled appointment this date due to not having transportation.
--- NOTE | 2022-10-19 09:45 | PTOPDC ---
Assessment and note entered by Jermain Lam, PT Evaluation Information Assessment Status Discharge Diagnosis Lumbar Spine mechanical pain, L hamstring pain Subjective Information Patient reports some days feeling better, some days the same. Main two issues are she is having increased cramping and with her anxiety she is always worried that her left leg will start going back to horrible and she will not be able to work. Reported Pain Level Pain Score 3: Self Report Additional Pain Score Comments Hurts worse after inactivity. Assessment PT Clinical Summary Cassy is a 52 year old female coming into the clinic with low back pain with LLE radiating symptoms. She was evaluated on 09/20/22 and attended 7 sessions. She has met her SI alignment and piriformis goal, but no her pain, hamstring, centralization goals. Patient is having an MRI this weekend and seeing an orthopedic surgeon next week. Recommend discharging from physical therapy and after the diagnostic test and consultation do more therapy if warranted, but patient is hopeful that she will get increased Gabapentin which really helps her and injections. Plan of Care PT Services Indicated No
== END 2022-10-19 13:50 | disposition home or self-care (01) ==
LOC: ANHPT 09:00
PROVIDERS: PCP Family Medicine
DX: M54.42 Lumbago with sciatica, left side (principal); M53.3 Sacrococcygeal disorders, not elsewhere classified; M25.562 Pain in left knee; S76.312D Strain of muscle, fascia and tendon of the posterior muscle group at thigh level, left thigh, subsequent encounter
CPT/HCPCS: 97110; 97140; 97161; 97530